=== PATIENT | female | born 1940 | race American Indian/Alaskan Native ===

== ENCOUNTER 2016-05-21 08:15 | Day surgery (SDC) | payer MEDICARE ==
[2016-05-21 08:46] VITALS: BP 137/73
[2016-05-21 09:36] LABS: Hematocrit 33.5 % (30.3-42.9); Hemoglobin 10.9 gm/dl (10.1-14.3); Mean Corpuscular HGB Conc 33 % (30-34); Mean Corpuscular Hemoglobin 31 pg (28-32); Mean Corpuscular Volume 95 fl (79-97); Platelet Count 202 K/mm3 (140-440); Red Blood Count 3.53 M/mm3 (3.65-5.03); Red Cell Distribution Width 13.5 % (13.2-15.2); White Blood Count 4.3 K/mm3 (4.5-11.0)
[2016-05-21 10:18] LABS: INR 1.05 (0.87-1.13)
[2016-05-21] MEDS ORDERED: VERSED IV ONE (10:45)
[2016-05-21] MEDS ORDERED: SUBLIMAZE ONE (10:46)
--- NOTE | 2016-05-21 14:02 | Cat Scan Report ---
LIMITED CT OF THE CHEST WITHOUT CONTRAST: FINDINGS: The patient was scheduled for CT-guided biopsy of right lung nodule. The patient's prior scans from [facility] from 2007 and from April 08, 2016 were reviewed. The images performed today demonstrate a 1 cm in diameter groundglass infiltrate with no solid tissue components. Compared to the study in 2008, there has been minimal interval change, possibly 3 mm increase in size. After discussion with the patient and the referring physician, and due to the small size of this vague infiltrate, I elected not to do CT-guided biopsy based on the low yield of performing a biopsy on a lesion this small. A follow-up CT in 6 months may be useful for further evaluation.
== END 2016-05-21 11:15 | disposition home or self-care (01) ==
LOC: OPU 08:15 → EDSTATUS 08:30 → OPU 11:15
PROVIDERS: ATTEND Specialist
DX: R91.1 Solitary pulmonary nodule (principal); Z53.8 Procedure and treatment not carried out for other reasons
CPT/HCPCS: 36415; 71250; 85027; 85610; 85730; J2250; J3010